=== PATIENT | male | born 1985 ===

== ENCOUNTER 2017-05-07 03:47 | Emergency (ER) | payer BC ==
[2017-05-07 03:52] VITALS: TEMP 98.8; O2SAT 98
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
[2017-05-07 06:13] VITALS: BP 111/64; PULSE 83; RESP 17
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
== END 2017-05-07 07:23 | disposition home or self-care (01) ==
LOC: MERGE 03:47 → ED 03:47
DX: S02.82XA Fracture of other specified skull and facial bones, left side, initial encounter for closed fracture (principal); Y04.2XXA Assault by strike against or bumped into by another person, initial encounter; Y93.89 Activity, other specified; Y92.89 Other specified places as the place of occurrence of the external cause